=== PATIENT | female | born 1960 | race Caucasian/White ===

== ENCOUNTER 2018-02-10 19:56 | Emergency (ER) | payer BC ==
[2018-02-10] MEDS: 0.9 % SODIUM CHLORIDE 1,000 ML BAG IV ONE (20:56)
[2018-02-10 21:11] LABS: BASO % 0.1 % (0-6); GRAN % 66.8 % (47-80); HEMATOCRIT 32.4 % (35.0-47.0); HEMOGLOBIN 10.6 gm/dl (11.6-16.0); LYMPH % 22.8 % (16-45); MEAN CELL VOLUME 94.5 fl (81-97); MEAN CORPUSCULAR HEMOGLOBIN 30.9 pg (27-33); MEAN CORPUSCULAR HGB CONC 32.7 g/dl (32-36); MEAN PLATELET VOLUME 9.2 fl (7.4-10.4); MONO % 8.3 % (0-9); PLATELET COUNT 333 K/uL (130-400); RED BLOOD COUNT 3.43 M/uL (3.80-5.40); RED CELL DISTRIBUTION WIDTH 13.8 % (11.5-14.5); WHITE BLOOD COUNT W/O DIFF 10.4 K/uL (4.2-12.2)
[2018-02-10] MEDS: ONDANSETRON HCL IV 4 MG/2 ML VIAL IV ONE (21:12)
[2018-02-10 21:18] LABS: BILIRUBIN,TOTAL < 0.20 mg/dL (0.2-1.0); BLOOD UREA NITROGEN 13 mg/dL (6-20); EST GLOMERULAR FILTRATION RATE > 60 mL/min
[2018-02-10 21:19] LABS: TOTAL PROTEIN 6.4 g/dL (6.6-8.7)
--- NOTE | 2018-02-10 21:20 | Emergency Department Record ---
History of Present Illness - General Chief complaint: Nausea, Vomiting, Diarrhea Stated complaint: DEHYDRATED Time Seen by Provider: 02/10/18 20:38 Source: Patient Mode of Arrival: Ambulatory Limitations: No limitations - History of Present Illness Initial comments: pt has a hx of crohns. she had an ileostomy reversal last week . since then she has been having profound diarrhea up to 20x a day. she feels very weak and dehydrated. she had been told by dr christopher office to go to [place] but she felt she was too weak to make it there. Onset/Timin -: Days(s) Description of Vomiting: Watery Description of Diarrhea: Water Associated Abdominal Pain: Yes Quality: Aching Consistency: Constant Improves with: None Worsens with: None Context: History of abdominal surgery Associated Symptoms: Nausea/vomiting, Weakness - Related Data Home Medications Medication Instructions Recorded Confirmed Last Taken Acetaminop W/ Codeine 300/30Mg 1 tab PO QHS 02/10/18 02/10/18 Unknown [Tylenol #3] Tamoxifen Citrate 20 mg PO DAILY 02/10/18 02/10/18 Unknown Previous Rx's Medication Instructions Recorded Ciprofloxacin HCl [Cipro] 500 mg PO Q12HR #9 tablet 02/11/18 Allergies Allergy/AdvReac Type Severity Reaction Status Date / Time Sulfa (Sulfonamide Allergy ANAPHYLAXIS Verified 02/10/18 20:26 Antibiotics) Travel Screening - Travel/Exposure Within Last 30 Days Have you traveled within the last 30 days?: No Review of Systems Reviewed: No additional complaints except as noted below Constitutional: Reports: As per HPI. Denies: Chills, Fever, Malaise, Night sweats, Weakness, Weight change Eyes: Reports: As per HPI. Denies: Eye discharge, Eye pain, Photophobia, Vision change ENT: Reports: As per HPI. Denies: Congestion, Dental pain, Ear pain, Epistaxis , Hearing loss, Throat pain Respiratory: Reports: As per HPI. Denies: Cough, Dyspnea, Hemoptysis, Stridor, Wheezes Cardiovascular: Reports: As per HPI. Denies: Arrhythmia, Chest pain, Dyspnea on exertion, Edema, Murmurs, Orthopnea, Palpitations, Paroxysmal nocturnal dyspnea, Rheumatic Fever, Syncope Endocrine: Reports: As per HPI. Denies: Fatigue, Heat or cold intolerance, Polydipsia, Polyuria Gastrointestinal: Reports: As per HPI, Diarrhea. Denies: Abdominal pain, Constipation, Hematemesis, Hematochezia, Melena, Nausea, Vomiting Genitourinary: Reports: As per HPI. Denies: Abnormal menses, Discharge, Dyspareunia, Dysuria, Frequency, Hematuria, Incontinence, Retention, Urgency Musculoskeletal: Reports: As per HPI. Denies: Arthralgia, Back pain, Gout, Joint swelling, Myalgia, Neck pain Skin: Reports: As per HPI. Denies: Bruising, Change in color, Change in hair/ nails, Lesions, Pruritus, Rash Neurological: Reports: As per HPI. Denies: Abnormal gait, Confusion, Headache, Numbness, Paresthesias, Seizure, Tingling, Tremors, Vertigo, Weakness Psychiatric: Reports: As per HPI. Denies: Anxiety, Auditory hallucinations, Depression, Homicidal thoughts, Suicidal thoughts, Visual hallucinations Hematological/Lymphatic: Reports: As per HPI. Denies: Anemia, Blood Clots, Easy bleeding, Easy bruising, Swollen glands Past Medical History - SOCIAL HISTORY Smoking Status: Current every day smoker Alcohol Use: None Drug Use: None - RESPIRATORY Hx Respiratory Disorders: No - CARDIOVASCULAR Hx Cardio Disorders: No - NEURO Hx Neuro Disorders: No - GI Hx GI Disorders: Yes Hx Crohn's Disease: Yes - Hx Genitourinary Disorders: No - ENDOCRINE Hx Endocrine Disorders: No - MUSCULOSKELETAL Hx Musculoskeletal Disorders: No - PSYCH Hx Psych Problems: No - HEMATOLOGY/ONCOLOGY Hx Hematology/Oncology Disorders: Yes Hx Cancer: Yes (Breast) Hx Chemotherapy: No Hx Radiation Therapy: Yes (11/2016) Family Medical History Any Significant Family History?: Yes Hx Diabetes: Mother Physical Exam - General General Appearance: Alert, Oriented x3, Cooperative, Mild distress - Head Head exam: Normal inspection - Eye Eye exam: Normal appearance, PERRL, EOMI Pupils: Normal accommodation - ENT ENT exam: Normal exam, Mucous membranes moist, Normal external ear exam, Normal orophraynx Ear exam: Normal external inspection. negative: External canal tenderness Nasal Exam: Normal inspection. negative: Discharge, Sinus tenderness Mouth exam: Normal external inspection, Tongue normal Teeth exam: Normal inspection. negative: Dental caries Throat exam: Normal inspection. negative: Tonsillar erythema, Tonsillar exudate - Neck Neck exam: Normal inspection, Full ROM. negative: Tenderness - Respiratory Respiratory exam: Normal lung sounds bilaterally. negative: Respiratory distress - Cardiovascular Cardiovascular Exam: Regular rate, Normal rhythm, Normal heart sounds - GI/Abdominal GI/Abdominal exam: Soft, Normal bowel sounds, Tenderness - Rectal Rectal exam: Deferred - exam: Deferred - Extremities Extremities exam: Normal inspection, Full ROM, Normal capillary refill. negative: Tenderness - Back Back exam: Reports: Normal inspection, Full ROM. Denies: Muscle spasm, Rash noted, Tenderness - Neurological Neurological exam: Alert, CN II-XII intact, Normal gait, Oriented X3 - Psychiatric Psychiatric exam: Normal affect, Normal mood - Skin Skin exam: Dry, Intact, Normal color, Warm Course Vital Signs 02/10/18 20:17 Temperature 99.3 F Pulse Rate [ 85 Pulse Ox Probe] Respiratory 28 H Rate Blood Pressure 148/81 [Left Arm] Pulse Ox 95 - Reevaluation(s) Reevaluation #1: 02/11/18 01:24 pt feels better. Reevaluation #2: 02/11/18 0 Medical Decision Making - Lab Data Result diagrams: 02/10/18 20:50 02/10/18 20:50 Lab Results 02/10/18 Range/Units 20:50 WBC 10.4 (4.2-12.2) K/uL RBC 3.43 L (3.80-5.40) M/uL Hgb 10.6 L (11.6-16.0) gm/dl Hct 32.4 L (35.0-47.0) % MCV 94.5 (81-97) fl MCH 30.9 (27-33) pg MCHC 32.7 (32-36) g/dl RDW 13.8 (11.5-14.5) % Plt Count 333 (130-400) K/uL MPV 9.2 (7.4-10.4) fl Gran % 66.8 (47-80) % Lymphocytes % 22.8 (16-45) % Monocytes % 8.3 (0-9) % Eosinophils % 2.0 (0-6) % Basophils % 0.1 (0-6) % Disposition Disposition: Discharge Clinical Impression: Dehydration, Hypokalemia Diarrhea Qualifiers: Diarrhea type: unspecified type Qualified Code(s): R19.7 - Diarrhea, unspecified Disposition: Home, Self-Care Condition: (1) Good Instructions: Acute Diarrhea (ED) Additional Instructions: follow up with doctor trever. return sooner if worse. push fluids. Prescriptions: Ciprofloxacin HCl [Cipro] 500 mg PO Q12HR #9 tablet Quality - Quality Measures Quality Measures: N/A - Blood Pressure Screening Does Patient Have Any of the Following: No Blood Pressure Classification: Pre-Hypertensive BP Reading Systolic Measurement: 126 Diastolic Measurement: 72 Screening for High Blood Pressure: < Pre-Hypertensive BP, F/U Documented > [ [id number]] Pre-Hypertensive Follow-up Interventions: Follow-up with rescreen every year.
[2018-02-10 21:21] LABS: GLUCOSE,RANDOM 140 mg/dL (74-109)
[2018-02-10 21:24] LABS: ALB/GLOB RATIO 1.5 (1.1-1.8); ALBUMIN 3.8 g/dL (4.0-5.0); ALKALINE PHOSPHATASE 47 U/L (35-104); ALT/SGPT 20 U/L (<33); AST/SGOT 10 U/L (10.0-35.0); LIPASE 95 U/L (13-60)
[2018-02-10 22:45] LABS: URINE APPEARANCE CLEAR; URINE BILIRUBIN NEGATIVE (NEGATIVE); URINE BLOOD NEGATIVE (NEGATIVE); URINE COLOR YELLOW; URINE GLUCOSE (UA) NEGATIVE (NEGATIVE); URINE KETONE NEGATIVE (NEGATIVE); URINE LEUKOCYTE ESTERASE NEGATIVE (NEGATIVE); URINE NITRITE NEGATIVE (NEGATIVE); URINE PROTEIN NEGATIVE (NEGATIVE); URINE UROBILINOGEN 0.2 E.U./dL (0.20 - 1.00)
[2018-02-10 23:15] LABS: ROTOVIRUS NOT DETECTED (NOT DETECT)
[2018-02-10 23:30] LABS: CRYPTOSPORIDIUM PARVUM ANTIGEN NOT DETECTED (NOT DETECT); GIARDIA LAMBLIA ANTIGEN NOT DETECTED (NOT DETECT)
[2018-02-11 01:17] LABS: MOLECULAR C DIFF TOXIN SCREEN NOT DETECTED (NOT DETECT)
[2018-02-11] MEDS: CIPROFLOXACIN HCL 500 MG TABLET PO ONE (01:45)
[2018-02-11] MEDS: POTASSIUM CHLORIDE 20 MEQ TABLET PO ONE (01:46)
== END 2018-02-11 01:50 | disposition home or self-care (01) ==
LOC: ER 19:56
DX: E87.6 Hypokalemia (principal); E86.0 Dehydration; R19.7 Diarrhea, unspecified; R11.2 Nausea with vomiting, unspecified; R53.1 Weakness; F17.210 Nicotine dependence, cigarettes, uncomplicated
CPT/HCPCS: 99284 ×2; 96374; 83690; 87329; 85025; 80053; 89055; 87425; 81003; 87427; 82272; 87493; J2405; J7030